=== PATIENT | female | born 1965 | race Two or more races ===

== ENCOUNTER 2019-01-29 23:25 | Emergency (ER) | payer MEDICAID, OTHER ==
[~2019-01-29] VITALS: Ht 162.6 cm; Wt 77.1 kg
[~2019-01-29 23:25] MED LIST: AMLO5TAB9 PO; AZIT250T13 PO
[2019-01-29 23:52] VITALS: BP 171/91
[2019-01-30] MEDS ORDERED: IBUPROFEN 400 MG TABLET PO ONE
[2019-01-30] MEDS ORDERED: IBUPROFEN 400 MG TABLET ONE (00:13)
== END 2019-01-30 02:10 | disposition home or self-care (01) ==
LOC: ER 23:26
DX: S93.691A Other sprain of right foot, initial encounter (principal); I10 Essential (primary) hypertension; Z98.890 Other specified postprocedural states; Z79.899 Other long term (current) drug therapy; W22.8XXA Striking against or struck by other objects, initial encounter; Y93.89 Activity, other specified; Y92.89 Other specified places as the place of occurrence of the external cause; Y99.8 Other external cause status
CPT/HCPCS: 73630; 99283; A4606

== ENCOUNTER 2021-08-26 02:02 | Emergency (ER) | payer MEDICAID, OTHER ==
[~2021-08-26] VITALS: Ht 165.1 cm; Wt 80.7 kg
[~2021-08-26 02:02] MED LIST changes: +AMLO-212 PO; -AMLO5TAB9 PO
[2021-08-26] MEDS ORDERED: ALPRAZOLAM 0.5 MG TABLET PO ONE (02:30)
[2021-08-26] MEDS ORDERED: ONDANSETRON 4 MG TAB.RAPDIS SL ONE (02:30)
[2021-08-26] MEDS ORDERED: ONDANSETRON 4 MG TAB.RAPDIS ONE (02:36)
[2021-08-26] MEDS ORDERED: ALPRAZOLAM 0.5 MG TABLET ONE (02:36)
[2021-08-26 03:10] VITALS: BP 155/90
--- NOTE | 2021-08-26 03:10 | NUR ---
Patient discharged to home in stable condition. Written and verbal after care instructions given. Patient verbalizes understanding of instruction.
== END 2021-08-26 03:11 | disposition home or self-care (01) ==
LOC: ER 02:04
DX: I10 Essential (primary) hypertension (principal); Z98.890 Other specified postprocedural states; Z79.899 Other long term (current) drug therapy
CPT/HCPCS: 93005; 99283; Q0162